=== PATIENT | female | born 1970 | race Caucasian/White ===

== ENCOUNTER 2016-10-20 21:44 | Emergency (ER) | payer OTHER ==
[~2016-10-20] VITALS: Ht 162.6 cm; Wt 79.0 kg
[~2016-10-20 21:44] MED LIST: BACTDS PO; CEPH-443 PO; IBUP800T25 PO
[2016-10-20 21:48] VITALS: Ht 162.6 cm; Wt 79.0 kg
[2016-10-20] MEDS ORDERED: HYDR-906 PO (22:08)
[2016-10-20] MEDS ORDERED: IBUP-1542 PO (22:08)
[2016-10-20] MEDS ORDERED: CEPH-443 PO (22:08)
[2016-10-20] MEDS ORDERED: SULF1TAB31 PO (22:08)
--- NOTE | 2016-10-20 22:18 | ERD ---
ER Documentation Chief Complaint Date/Time DATE: 10/20/16 TIME: 22:14 Chief Complaint abscess left breast HPI 46-year-old female presents here in emergency department for complaints of bumps in the left upper back and left axillary area that started yesterday. Patient's complaining of pain, throbbing pain, 6/10 scale, accompanied with redness, worse upon touching the area. Patient initially had a reaction to her bra, was scratching on it, and I became red and swollen and now has bumps. Patient did not take any medications of symptoms. Patient denies any fever or chills. ROS All systems reviewed and are negative except as per history of present illness. Medications Home Meds Active Scripts Hydrocodone/Acetaminophen ([place] 5-325 Tablet) 1 Each Tablet, 1 TAB PO Q6H Y for SEVERE PAIN LEVEL 7-10, #20 TAB Prov:JOHANN HAN NP 10/20/16 Ibuprofen* (Motrin*) 600 Mg Tab, 600 MG PO Q6H Y for PAIN AND OR ELEVATED TEMP, #30 TAB Prov:JOHANN HAN NP 10/20/16 Cephalexin* (Keflex*) 500 Mg Capsule, 500 MG PO QID for 10 Days, CAP Prov:JOHANN HAN NP 10/20/16 Sulfamethoxazole/Trimethoprim* (Bactrim Ds* Tablet) 1 Each Tablet, 1 TAB PO BID , #20 TAB Prov:JOHANN HAN NP 10/20/16 Sulfamethoxazole-Trimethoprim* (Bactrim* DS) 800-160 Mg Tab, 1 TAB PO BID for 7 Days, TAB Prov:LAVERNE LUGO NP 05/14/15 Cephalexin* (Keflex*) 500 Mg Capsule, 500 MG PO QID for 7 Days, CAP Prov:LAVERNE LUGO CUSTOMER ASSISTANCE REPRESENTATIVE 05/14/15 Ibuprofen* (Motrin*) 800 Mg Tab, 800 MG PO Q6H Y for PAIN AND OR ELEVATED TEMP, #30 TAB Prov:LAVERNE LUGO NP 05/14/15 Allergies Allergies: Coded Allergies: No Known Drug Allergies (Verified Allergy, Unknown, 10/20/16) PMhx/Soc History of Surgery: No Anesthesia Reaction: No Hx Neurological Disorder: No Hx Respiratory Disorders: No Hx Cardiac Disorders: No Hx Psychiatric Problems: No Hx Miscellaneous Medical Probl: Yes (HYPOTHYROIDISM) Hx Alcohol Use: No Hx Substance Use: Yes (METH ) Hx Tobacco Use: No Smoking Status: Never smoker FmHx Family History: No coronary disease, No diabetes, No other Physical Exam Vitals Vital Signs Date Time Temp Pulse Resp B/P Pulse Ox O2 Delivery O2 Flow Rate FiO2 10/20/16 21:48 98.2 102 20 117/63 98 Physical Exam GENERAL: The patient is well developed and appropriate for usual state of health, in no apparent distress. CHEST: Clear to auscultation bilaterally. There are no rales, wheezes or rhonchi. HEART: Regular rate and rhythm. No murmurs, clicks, rubs or gallops. No S3 or S4. ABDOMEN: Soft, nontender and nondistended. Good bowel sounds. No rebound or guarding. No gross peritonitis. No gross organomegaly or masses. No Saunders sign or McBurney point tenderness. BACK: No midline or flank tenderness. EXTREMITIES: Equal pulses bilaterally. There is no peripheral clubbing, cyanosis or edema. No focal swelling or erythema. Full range of motion. Grossly neurovascularly intact. NEURO: Alert and oriented. Cranial nerves 2-12 intact. Motor strength in all 4 extremities with 5/5 strength. Sensation grossly intact. Normal speech and gait. SKIN:3 cm diameter erythematous indurated area noted in the left upper back area , no fluctuance no fluctuance noted, tender on palpation. Noted 3 x 4 cm erythematous induration noted in the left midaxillary area area, tender on palpation, no fluctuance noted, mild erythema noted. There is no apparent petechia. The skin is warm and dry. HEMATOLOGIC AND LYMPHATIC: There is no evidence of excessive bruising or lymphedema. No gross cervical, axillary, or inguinal lymphadenopathy. Procedures/MDM Medical decision making: Patient symptoms is likely this and with early soft tissue abscess of affected areas. No symptoms of any fluctuance at this time, incision and drainage not indicated at this time. No symptoms of sepsis at this time. Patient presents hemodynamically stable. Patient was given for Keflex, Bactrim, ibuprofen and [place], Zofran, is advised to apply warm compresses on affected area, return in 48 hours for reevaluation of symptoms. Patient is advised to return to emergency department for any worsening symptoms. Disposition: Home. Stable. Departure Diagnosis: Primary Impression: Soft tissue abscess Condition: Stable Patient Instructions: Abscess, Antiobiotic Treatment Only JOHANN HAN NP Oct 20, 2016 22:18
== END 2016-10-20 22:20 | disposition home or self-care (01) ==
LOC: FTE 21:44
DX: L02.212 Cutaneous abscess of back [any part, except buttock and flank] (principal); E03.9 Hypothyroidism, unspecified
CPT/HCPCS: 99284